=== PATIENT | male | born 1965 | race Caucasian/White ===

== ENCOUNTER → 2019-05-25 | Outpatient (CLI) | payer BC ==
[~2019-05-25] MED LIST: ACTOS; ACTOS PO; AMIT50TA3 PO; ASPI-808 PO; INSU100C SQ; INSU100V16 SQ; LISI20TA PO; NIAC1TBM21 PO; OMEP-280 PO; PIOG30TA71 PO; PREG25CA PO; SIMV40TA4 PO; SULF1TAB38 PO; TRAM50TA2 PO; TRM50T PO; VITA1TAB17 PO; ZOLP10TA5 PO; [UNRECOGNIZED DRUG - OTHER]; [UNRECOGNIZED DRUG - OTHER] PO
== END | disposition home or self-care (01) ==
LOC: PREOP 05:51
PROVIDERS: ATTEND Internal Medicine
DX: Z01.818 Encounter for other preprocedural examination (principal)

== ENCOUNTER → 2020-04-25 | Outpatient (CLI) | payer BC ==
[~2020-04-25] MED LIST changes: -OMEP-280 PO; +OMEP20CA18 PO
== END ==
LOC: LABNPT 08:38
PROVIDERS: ATTEND Internal Medicine
DX: Z11.52 Encounter for screening for COVID-19 (principal)

== ENCOUNTER → 2020-04-26 | Outpatient (CLI) | payer BC | LOC: LABNPT 07:11 | PROVIDERS: ATTEND Internal Medicine | DX: U07.1 COVID-19 (principal) | CPT/HCPCS: 87635 ==

== ENCOUNTER → 2020-04-28 | Outpatient (CLI) | payer BC ==
[~2020-04-28] VITALS: Ht 182.9 cm; Wt 95.5 kg
[~2020-04-28] MED LIST changes: +BAMLANIVIMAB 700 MG in NS 200 ML IV ONE; +EPINEPHrine INJECTION 1 MG/ML AMP IM PRN; +diphenhydrAMINE 50 MG/ML INJ (BENADRYL) IV PRN
[2020-04-28 08:15] VITALS: BP 137/90
[2020-04-28 10:16] VITALS: BP 158/74
== END ==
LOC: INFUSION 07:59
PROVIDERS: ATTEND Nurse Practitioner Family
DX: U07.1 COVID-19 (principal)

== ENCOUNTER 2021-02-16 11:23 | Emergency (ER) | payer BC ==
[~2021-02-16] VITALS: Ht 183 cm; Wt 97.5 kg
[~2021-02-16 11:23] MED LIST changes: -BAMLANIVIMAB 700 MG in NS 200 ML IV ONE; -EPINEPHrine INJECTION 1 MG/ML AMP IM PRN; -diphenhydrAMINE 50 MG/ML INJ (BENADRYL) IV PRN
[2021-02-16 11:28] VITALS: BP 149/82
[2021-02-16] MEDS ORDERED: ACHD5005 PO (11:42)
--- NOTE | 2021-02-16 11:43 | ED Abdominal Pain ---
General Stated Complaint: STOMACH PAIN Source of Information: Patient Exam Limitations: No Limitations History of Present Illness Date Seen by Provider: Feb 16, 2021 Time Seen by Provider: 11:25 Initial Comments Patient to the ER by private conveyance from Dr. Bush's office with chief complaint that yesterday while at work he had some pain started up around his umbilicus that is nonradiating. It is only gotten worse. Upwards of an 8 out of 10. Presently about a 3 out of 10. Better when he is not moving or lifting. No trauma. No previous abdominal surgeries. No nausea vomiting fever chills dysuria diarrhea or constipation. He is a diabetic. He had a colonoscopy by Dr. Bush 1 year ago which was unremarkable. He is able to pass flatus and passed a bowel movement this morning at 630 which did not worsen or relieve his pain. Allergies and Home Medications Allergies Coded Allergies: No Known Drug Allergies (Verified , 05/28/19) Patient Home Medication List Home Medication List Reviewed: Yes Amitriptyline HCl (Amitriptyline HCl) 50 Mg Tablet, 50 MG PO HS, (Reported) Entered as Reported by: NADER SCALES on 12/01/141848 Insulin Aspart (Novolog) 100 Unit/1 Ml Susp, 59.2 UNITS SQ UD, (Reported) Entered as Reported by: NADER SCALES on 12/01/141848 Lisinopril (Prinivil) 20 Mg Tablet, 20 MG PO DAILY, (Reported) Entered as Reported by: DANDRE TAVAREZ on 08/29/12 183 Niacin/Simvastatin (Simcor 1,000-40 mg Tablet) 1 Each Tbmp.24hr, 1 TAB PO HS, (Reported) Entered as Reported by: NADER SCALES on 12/01/141848 Omeprazole (Omeprazole) 20 Mg Capsule.dr, 20 MG PO BID, (Reported) Entered as Reported by: NADER SCALES on 12/01/141848 Pioglitazone HCl (Pioglitazone HCl) 30 Mg Tablet, 30 MG PO DAILY, (Reported) Entered as Reported by: NADER SCALES on 12/01/141848 Pregabalin (Lyrica) 25 Mg Capsule, 25 MG PO DAILY, (Reported) Entered as Reported by: KRISTIN FLORES on 12/01/14 1207 Pregabalin (Lyrica) 25 Mg Capsule, 75 MG PO HS, (Reported) Entered as Reported by: NADER SCALES on 12/01/14 184 Tramadol Hcl (Tramadol Hcl) 50 Mg Tablet, 50 MG PO HS, (Reported) Entered as Reported by: DANDRE TAVAREZ on 08/29/12 183 Vitamin B Complex (Vitamin B Complex) 1 Each Tablet, 1 EACH PO DAILY, (Reported) Entered as Reported by: NADER SCALES on 12/01/14 185 Zolpidem Tartrate (Zolpidem Tartrate) 10 Mg Tablet, 10 MG PO HS, (Reported) Entered as Reported by: DANDRE TAVAREZ on 08/29/12 183 [benfotiamin 600 mg] , 2 TAB PO BID, (Reported) Entered as Reported by: NADER SCALES on 12/01/141855 Review of Systems Review of Systems Constitutional: No chills, No diaphoresis EENTM: No Blurred Vision, No Double Vision Respiratory: Denies Cough, Denies Shortness of Air Cardiovascular: Denies Chest Pain, Denies Lightheadedness Gastrointestinal: Denies Constipated, Denies Diarrhea, Denies Nausea Genitourinary: Denies Burning, Denies Discharge Musculoskeletal: No back pain, No joint pain All Other Systems Reviewed Negative Unless Noted: Yes Past Nomevnv-Ejdcux-Mjbuve Hx Patient Social History Tobacco Use?: No Use of E-Cig and/or Vaping dev: No Substance use?: No Immunizations Up To Date Tetanus Booster (TDap): More than 5yrs Seasonal Allergies Seasonal Allergies: No Past Medical History Surgeries: Yes Orthopedic, Tonsillectomy Respiratory: No Currently Using CPAP: Yes Cardiac: Yes Hypertension Neurological: No Reproductive Disorders: No Gastrointestinal: No Musculoskeletal: No Endocrine: Yes Diabetes, Insulin dep Cancer: No Integumentary: No Family Medical History Patient reports no known family medical history. No Pertinent Family Hx Physical Exam Vital Signs Capillary Refill : Height/Weight/BMI Height: 6'0.00" Weight: 183lbs. 3.0oz. 83.680314rd; 29.83 BMI Method: General Appearance: WD/WN, mild distress HEENT: PERRL/EOMI, pharynx normal Neck: full range of motion, supple, normal inspection Respiratory: lungs clear, normal breath sounds, no respiratory distress, no accessory muscle use Cardiovascular: normal peripheral pulses, regular rate, rhythm Gastrointestinal: normal bowel sounds, soft, tenderness (Umbilicus with a nickel size protruding, tender mass that is easily reducible back into the umbilicus hernia.) Extremities: normal range of motion, normal capillary refill Neurologic/Psychiatric: alert, normal mood/affect, oriented x 3 Skin: normal color, warm/dry Progress/Results/Core Measures Progress Progress Note : Time: 11:39 Progress Note Patient has a reducible umbilical hernia. We will give him some pain medicine, put him on lifting restrictions. Call Dr. Terrazas, general surgery and he says if we can get him over to his clinic today he will meet him there or make an appointment to see him. Departure Impression Primary Impression: Umbilical hernia without obstruction and without gangrene Disposition: HOME, SELF-CARE Condition: Stable Departure-Patient Inst. Decision time for Depature: 11:40 Referrals: DOMINGO BUSH MD (PCP/Family) Primary Care Physician JERMAINE TERRAZAS MD Patient Instructions: Abdominal Hernia (DC) Add. Discharge Instructions: From the ER go directly to Dr. Terrazas's office. He has called ahead and they should be expecting you so they can make an appointment. Hernias do not get smaller with time. They do not repair themselves. Do not lift anything more than 5 pounds until released by the surgeon. Do not lift and twist. Promptly return to the ER if you are unable to pass gas, stool or are having intractable pain, vomiting or fever. Tylenol 650 mg every 8 hours as necessary for pain. Ibuprofen 800 mg or 8 hours necessary for pain. Hydrocodone 1 tablet every 6 hours as necessary for severe pain. Scripts Hydrocodone/Acetaminophen (Hydrocodone-Acetamin 5-325 mg) 1 Each Tablet 1 TAB PO Q6H PRN for PAIN-MODERATE (5-7), #8 TAB 0 Refills Prov: KATERIN BO 02/16/21 Work/School Note: Work Release Form Date Seen in the Emergency Department: Feb 16, 2021 Return to Work: Feb 19, 2021 Restrictions: Need Release from Doctor Other Restrictions Listed Below: Do not lift more than 5 pounds until released by a doctor. Restrictions: No lifting and twisting. Copy Copies To 1: JERMAINE TERRAZAS MD, TITUS J Feb 16, 2021 11:43
== END 2021-02-16 11:49 | disposition home or self-care (01) ==
LOC: EDUNIT# 11:23 → ER 11:26
DX: K42.9 Umbilical hernia without obstruction or gangrene (principal); I10 Essential (primary) hypertension; E11.9 Type 2 diabetes mellitus without complications; Z79.4 Long term (current) use of insulin
CPT/HCPCS: 99283

== ENCOUNTER → 2021-08-30 | Outpatient (CLI) | payer BC ==
[~2021-08-30] MED LIST changes: +ACHD5005 PO; +GADOTERATE 0.5 MMOL/ML (CLARISCAN) 20 ML VIAL IV ONE
--- NOTE | 2021-08-30 14:02 | Diagnostic Imaging Report ---
MRI brain with and without contrast Technique: Multiplanar, multisequence MRI of the brain was performed with and without contrast. Indication: Right-sided weakness. Comparison: None available Findings: The diffusion series demonstrates no restriction to suggest acute ischemia. There is no MR evidence of acute intracranial hemorrhage. There is no evidence of intracranial mass effect or shift. Mild age-appropriate global cerebral volume loss is demonstrated. There are minimal background chronic microvascular ischemic changes demonstrated within the subcortical and periventricular white matter. Avelar and white matter signal characteristics are otherwise unremarkable. There is no abnormal extra-axial fluid collection. The ventricles are appropriate in size and configuration. The basilar cisterns are patent. Pituitary gland and pineal region appear normal. There is normal alignment of the craniocervical junction. No acute posterior fossa abnormality is demonstrated. There is no evidence of pathologic intracranial enhancement. The mastoids are clear. There is moderate mucosal thickening within the right maxillary sinus. The orbital contents are unremarkable. Prior ocular lens replacement noted. Expected arterial and dural venous sinus flow voids appear preserved. Impression: 1. No MR evidence of an acute intracranial abnormality. There is no evidence of acute ischemia, hemorrhage, intracranial mass effect, hydrocephalus, or pathologic intracranial enhancement. 2. Mild age-appropriate global cerebral volume loss. Minimal chronic microvascular ischemic changes are demonstrated throughout the white matter. Dictated by: Dictated on workstation # [id number]
== END ==
LOC: RAD 13:15
PROVIDERS: ATTEND Internal Medicine
DX: R53.1 Weakness (principal)
CPT/HCPCS: 70553